=== PATIENT | female | born 1950 | race Caucasian/White ===

== ENCOUNTER 2016-11-04 06:11 | Day surgery (SDC) | payer MEDICARE ==
[~2016-11-04 06:11] MED LIST: ACIDOPHILU1 PO; BIOTIN10 MG PO; BYDUREON2 MG SQ; CLARIT10 PO; DIOV80 PO; MULTIPLE VIT PO; PROTONIX PO; STOOL SOFTEN240 MG PO; SYN.025B PO; TRICOR145 PO; ZOLOFT25 MG PO
== END 2016-11-04 09:32 | disposition home or self-care (01) ==
LOC: SDC 06:11
PROVIDERS: Orthopaedic Surgery
PROC: 3E0S33Z Introduction of Anti-inflammatory into Epidural Space, Percutaneous Approach (ICD-10-PCS; 2016-11-04)
PROC: 3E0S3BZ Introduction of Anesthetic Agent into Epidural Space, Percutaneous Approach (ICD-10-PCS; principal; 2016-11-04 08:15)
DX: M54.16 Radiculopathy, lumbar region (principal); Z88.5 Allergy status to narcotic agent; Z88.8 Allergy status to other drugs, medicaments and biological substances; Z79.899 Other long term (current) drug therapy; Z90.710 Acquired absence of both cervix and uterus; Z98.51 Tubal ligation status; Z98.890 Other specified postprocedural states
CPT/HCPCS: 82962; J1040; J2250; J3010